=== PATIENT | male | born 1955 ===

== ENCOUNTER 2021-07-28 17:01 | Emergency (ER) | payer MEDICARE ==
[~2021-07-28] VITALS: Ht 165.1 cm; Wt 86.4 kg
[2021-07-28 17:05] VITALS: BP 163/101
[2021-07-28] MEDS ORDERED: AMOX-422 PO (17:21)
== END 2021-07-28 17:47 | disposition home or self-care (01) ==
LOC: ER 17:02
DX: K04.7 Periapical abscess without sinus (principal); K02.9 Dental caries, unspecified; K08.89 Other specified disorders of teeth and supporting structures; Z79.2 Long term (current) use of antibiotics
CPT/HCPCS: 99283